=== PATIENT | male | born 1930 | race Caucasian/White ===

== ENCOUNTER 2017-02-06 16:50 | Emergency (ER) | payer OTHER ==
[~2017-02-06] VITALS: Ht 167.6 cm; Wt 99.0 kg
[~2017-02-06 16:50] MED LIST: ADULT LOW DOSE81 M1 PO; AMLODIPINE BESYL5 MG PO; ANTIVERT25 MG PO; CLOPIDOGREL75 MG PO; COUMADIN3 MG PO; COUMADIN5 MG PO; COZAAR25 MG PO; COZAAR50 MG PO; CYCLOBENZAPRINE10 MG PO; CYCLOBENZAPRINE5 MG PO; DAILY VALUE1 EACH PO; DESYREL12.5 MG PO; DOCUSATE SODIU100 MG PO; ELIQUIS5 MG PO; ENDOCET 5-3251 EACH PO; FLOMAX0.4 M1 PO; FLOMAX0.4 MG PO; KEFLEX500 MG PO; LIDOCAINE700 MG TD; LOPRESSOR25 MG PO; NITROSTAT0.4 MG SL; PLAVIX75 MG PO; SIMVASTATIN40 M1 PO; TRAMADOL HCL50 MG PO; TRAZODONE HCL50 MG PO; TYLENOL ARTHRI650 MG PO; TYLENOL EXTRA500 MG PO; WARFARIN SODIUM3 MG PO
[2017-02-06 19:01] LABS: D-DIMER ELISA 0.84 mg/L FEU (< 0.57); INTER. NORMALIZED RATIO 1.2; PROTHROMBIN TIME 12.5 (9.2-11.2)
[2017-02-06 19:02] LABS: EOSINOPHIL (%) 0.7 % (0-5); EOSINOPHIL COUNT 0.1 K/uL (0-0.3); HEMATOCRIT 52.6 % (38.0-50.0); IMMATURE GRANULOCYTE (%) 0.2 % (0.0-0.7); INSTRUMENT ABS NEUTROPHIL CT 6.5 K/uL; LYMPHOCYTE COUNT 1.1 K/uL (1.0-2.8); MCH 32.1 PG (29.0-34.0); MCHC 33.5 G/DL (30.0-36.0); MEAN PLAT.VOLUME 9.8 uM^3 (9.0-12.4); MONOCYTE (%) 7.6 % (3-12); MONOCYTE COUNT 0.6 K/uL (0-0.8); NEUTROPHIL COUNT 6.5 K/uL (1.8-6.4); PLATELET COUNT 117 K/uL (156-360); RBC DIS.WIDTH-CV 13.2 % (11.8-14.6); RBC DIS.WIDTH-SD 47.2 % (39-53); RED BLOOD COUNT 5.48 M/uL (4.00-5.50); WHITE BLOOD COUNT 8.3 K/uL (4.1-10.2)
[2017-02-06 19:09] LABS: CHLORIDE 104 mEq/L (99-109); SODIUM 140 mEq/L (136-147)
[2017-02-06 19:12] LABS: GLUCOSE 99 mg/dL (70-99)
[2017-02-06 19:13] LABS: ANION GAP 14 MEQ/L (2-14)
[2017-02-06 19:14] LABS: TOTAL BILIRUBIN 4.5 mg/dL (0.0-1.0)
[2017-02-06 19:15] LABS: ALKALINE PHOSPHATASE 97 IU/L (3-129); GFR ESTIMATE (CALCULATED) 47 mL/min/
[2017-02-06 19:16] LABS: TROP-I INTERPRETATION NEGATIVE; TROPONIN-I < 0.01 ng/mL (0.0-0.30); UREA NITROGEN (BUN) 22 mg/dL (9-23)
[2017-02-06] MEDS ORDERED: LORTAB 5-325 M1 EACH PO (22:12)
[2017-02-06] MEDS ORDERED: PROVENTIL HFA6.7 GM IH (22:12)
[2017-02-06] MEDS ORDERED: TESSALON PERLE100 MG PO (22:12)
[2017-02-06] MEDS ORDERED: CEFTIN500 MG PO (22:12)
[2017-02-06 22:54] VITALS: BP 98/67
== END 2017-02-06 23:00 | disposition home or self-care (01) ==
LOC: EME → EDBD 16:50 → EME 23:00
PROVIDERS: Emergency Medicine
DX: J40 Bronchitis, not specified as acute or chronic (principal); R09.1 Pleurisy; I10 Essential (primary) hypertension; E78.5 Hyperlipidemia, unspecified; Z79.01 Long term (current) use of anticoagulants; Z85.46 Personal history of malignant neoplasm of prostate; Z95.5 Presence of coronary angioplasty implant and graft; Z87.891 Personal history of nicotine dependence
CPT/HCPCS: 71010; 71275; 80053; 83880; 84484; 85025; 85379; 85610; 93005; 94640; 94640 76; 99281; 99285; J2270; J2405

== ENCOUNTER → 2017-06-12 | Outpatient (CLI) | payer OTHER ==
[~2017-06-12] MED LIST changes: +CEFTIN500 MG PO; +LORTAB 5-325 M1 EACH PO; +PROVENTIL HFA6.7 GM IH; +TESSALON PERLE100 MG PO
== END | disposition home or self-care (01) ==
LOC: NUC 10:50
DX: R97.20 Elevated prostate specific antigen [PSA] (principal); Z85.46 Personal history of malignant neoplasm of prostate
CPT/HCPCS: 78306; A9503

== ENCOUNTER 2017-10-17 16:52 | Inpatient (IN) | payer OTHER ==
[~2017-10-17] VITALS: Ht 170.2 cm; Wt 105.7 kg
[~2017-10-17 16:52] MED LIST changes: +COZAAR100 MG PO
[2017-10-17 17:26] LABS: HEMATOCRIT 47.9 % (38.0-50.0); MEAN PLAT.VOLUME 9.7 uM^3 (9.0-12.4); PLATELET COUNT 118 K/uL (156-360); RBC DIS.WIDTH-CV 13.4 % (11.8-14.6); RBC DIS.WIDTH-SD 47.8 % (39-53); RED BLOOD COUNT 4.94 M/uL (4.00-5.50); WHITE BLOOD COUNT 8.9 K/uL (4.1-10.2)
[2017-10-17 17:34] LABS: CHLORIDE 109 mEq/L (99-109); SODIUM 141 mEq/L (136-147)
[2017-10-17 17:36] LABS: GLUCOSE 101 mg/dL (70-99)
[2017-10-17 17:37] LABS: ANION GAP 9 MEQ/L (2-14)
[2017-10-17 17:40] LABS: GFR ESTIMATE (CALCULATED) 47 mL/min/
[2017-10-17 17:41] LABS: UREA NITROGEN (BUN) 20 mg/dL (9-23)
[2017-10-17 17:48] LABS: TROP-I INTERPRETATION NEGATIVE; TROPONIN-I < 0.01 ng/mL (0.0-0.30)
[2017-10-17] MEDS ORDERED: GABAPENTIN300 MG PO (19:12)
[2017-10-17] MEDS ORDERED: ADVAIR 250/501 DISK IH (19:12)
[2017-10-17] MEDS ORDERED: CO Q-10100 MG PO (19:12)
[2017-10-18 00:18] LABS: BASE EXCESS -7.3 mEq/L (-3 to +3); BICARBONATE 16.2 mEq/L (22-26); CARBOXY HGB 1.7 % (0-5); METHEMOGLOBIN 1.7 % (0-1.5); PCO2 28 mm Hg (35-45); PO2 90 mm Hg (80-100); SITE LR; pH 7.37 (7.35-7.45)
[2017-10-18 00:19] LABS: COMMENTS - BLOOD GASES A+C+; DEVICE NC; O2 FLOW 2 L/MIN; TOTAL RESP RATE 28 resp/min
[2017-10-18 00:30] VITALS: BP 123/78
[2017-10-18 01:38] LABS: TOTAL BILIRUBIN 2.9 mg/dL (0.0-1.0)
[2017-10-18 01:39] LABS: ALKALINE PHOSPHATASE 81 IU/L (3-129)
[2017-10-18 01:40] LABS: TROP-I INTERPRETATION NEGATIVE; TROPONIN-I 0.02 ng/mL (0.0-0.30)
[2017-10-18 01:41] LABS: DIRECT BILIRUBIN 0.7 mg/dL (0.0-0.3)
[2017-10-18 03:04] LABS: ADD MIUA? NO; BILIRUBIN NEGATIVE; BLOOD NEGATIVE; COLOR AMBER ((YELLOW)); GLUCOSE (STRIP) >=500; KETONES 5; LEUKOCYTES NEGATIVE; NITRITE NEGATIVE; PROTEIN (STRIP) 30; SPECIFIC GRAVITY 1.032 (1.000-1.030); UCUL ADDED? NO; UROBILINOGEN 0.2 MG/DL (0.2-1.0)
[2017-10-18 03:15] VITALS: BP 129/68
[2017-10-18 06:16] LABS: HEMATOCRIT 46.7 % (38.0-50.0); MCH 31.9 PG (29.0-34.0); MCHC 31.9 G/DL (30.0-36.0); MEAN PLAT.VOLUME 10.1 uM^3 (9.0-12.4); PLATELET COUNT 126 K/uL (156-360); RBC DIS.WIDTH-CV 13.8 % (11.8-14.6); RBC DIS.WIDTH-SD 50.4 % (39-53); RED BLOOD COUNT 4.67 M/uL (4.00-5.50)
[2017-10-18 06:20] LABS: TROP-I INTERPRETATION NEGATIVE; TROPONIN-I 0.02 ng/mL (0.0-0.30)
[2017-10-18 06:38] LABS: ALKALINE PHOSPHATASE 66 IU/L (3-129); ANION GAP 15 MEQ/L (2-14); CHLORIDE 107 MEQ/L (99-109); GFR ESTIMATE (CALCULATED) 51 mL/min/; POTASSIUM 4.4 MEQ/L (3.7-5.4); SAMPLE HEMOLYSIS CHECK 0; SAMPLE ICTERIC CHECK 0; SAMPLE LIPEMIA CHECK 0; SODIUM 141 MEQ/L (136-147); TOTAL BILIRUBIN 2.2 MG/DL (0.0-1.0); UREA NITROGEN (BUN) 24 mg/dL (9-23)
[2017-10-18 06:40] LABS: GLUCOSE 242 mg/dL (70-99)
[2017-10-18 08:00] VITALS: BP 139/73
[2017-10-18 09:00] VITALS: BP 139/73
[2017-10-18 10:07] LABS: Estimated Average Glucose 137 mg/dL (70-123); HEMOGLOBIN A1c (GLYCOHEMOGLOB) 6.4 % HGB (Below 5.7)
[2017-10-18 13:21] LABS: POINT-OF-CARE METER ID UU14174216
[2017-10-18 15:42] LABS: POINT-OF-CARE METER ID UU13113781
[2017-10-18 16:00] VITALS: BP 140/72
[2017-10-18 19:00] VITALS: BP 131/80
[2017-10-18 20:59] LABS: POINT-OF-CARE METER ID UU14174216
[2017-10-19] VITALS (7 sets, daily range): BP systolic 123–162; BP diastolic 84–101
[2017-10-19 04:40] LABS: HEMATOCRIT 45.4 % (38.0-50.0); MCH 32.8 PG (29.0-34.0); MCHC 33.7 G/DL (30.0-36.0); MCV 97.2 FL (86-99); MEAN PLAT.VOLUME 9.9 uM^3 (9.0-12.4); PLATELET COUNT 134 K/uL (156-360); RBC DIS.WIDTH-CV 14.3 % (11.8-14.6); RBC DIS.WIDTH-SD 51.6 % (39-53); RED BLOOD COUNT 4.67 M/uL (4.00-5.50); WHITE BLOOD COUNT 16.8 K/uL (4.1-10.2)
[2017-10-19 04:55] LABS: CHLORIDE 110 mEq/L (99-109); POTASSIUM 4.9 mEq/L (3.7-5.4); SODIUM 141 mEq/L (136-147)
[2017-10-19 04:57] LABS: GLUCOSE 194 mg/dL (70-99)
[2017-10-19 04:58] LABS: ANION GAP 10 MEQ/L (2-14)
[2017-10-19 05:01] LABS: GFR ESTIMATE (CALCULATED) 56 mL/min/ (58.99-99999)
[2017-10-19 05:02] LABS: UREA NITROGEN (BUN) 28 mg/dL (9-23)
[2017-10-19 08:34] LABS: POINT-OF-CARE METER ID UU14174216
[2017-10-19 11:43] LABS: POINT-OF-CARE METER ID UU14174216
[2017-10-19 16:17] LABS: POINT-OF-CARE METER ID UU14174216
[2017-10-19 21:00] LABS: POINT-OF-CARE METER ID UU13113781
[2017-10-20 04:18] VITALS: BP 154/95
[2017-10-20 08:31] LABS: POINT-OF-CARE METER ID UU14174216; POINT-OF-CARE USER ID NUTSLF44
[2017-10-20 08:45] VITALS: BP 153/93
[2017-10-20 09:41] LABS: HEMATOCRIT 50.3 % (38.0-50.0); MCH 31.9 PG (29.0-34.0); MCHC 32.6 G/DL (30.0-36.0); MCV 97.9 FL (86-99); PLATELET COUNT 147 K/uL (156-360); RBC DIS.WIDTH-CV 14.4 % (11.8-14.6); RBC DIS.WIDTH-SD 51.9 % (39-53); RED BLOOD COUNT 5.14 M/uL (4.00-5.50); WHITE BLOOD COUNT 14.8 K/uL (4.1-10.2)
[2017-10-20] MEDS ORDERED: AZITHROMYCIN500 M1 PO (09:48)
[2017-10-20] MEDS ORDERED: MEDROL DOSEPAK4 MG PO (09:50)
[2017-10-20] MEDS ORDERED: VENTOLIN HFA18 GM IH (09:50)
[2017-10-20 10:11] LABS: ANION GAP 12 MEQ/L (2-14); CHLORIDE 107 MEQ/L (99-109); GFR ESTIMATE (CALCULATED) 51 mL/min/ (58.99-99999); GLUCOSE 211 mg/dL (70-99); POTASSIUM 4.5 MEQ/L (3.7-5.4); SAMPLE HEMOLYSIS CHECK 0; SAMPLE ICTERIC CHECK 1; SAMPLE LIPEMIA CHECK 0; SODIUM 142 MEQ/L (136-147); UREA NITROGEN (BUN) 36 mg/dL (9-23)
[2017-10-20] MEDS ORDERED: CIPRO500 MG PO (11:45)
[2017-10-20 12:00] VITALS: BP 144/101
[2017-10-20 12:59] LABS: POINT-OF-CARE METER ID UU14314088; POINT-OF-CARE USER ID NUTSLF44
== END 2017-10-20 13:11 | disposition home or self-care (01) | DRG 190 ==
LOC: EME 16:52 → 4EAST 22:01 → EDOF 22:01 → ENRESERV 22:09 → 5SOUTH 23:55 → ENRESERV 10-18 00:02 → 4EAST 10-18 03:14
PROVIDERS: Emergency Medicine; Hospitalist; Internal Medicine; Physician Assistant
DX: J44.1 Chronic obstructive pulmonary disease with (acute) exacerbation (principal); J20.9 Acute bronchitis, unspecified; J44.0 Chronic obstructive pulmonary disease with (acute) lower respiratory infection; J96.21 Acute and chronic respiratory failure with hypoxia; Z99.81 Dependence on supplemental oxygen; E87.2 Acidosis; I71.2 Thoracic aortic aneurysm, without rupture; I71.4 Abdominal aortic aneurysm, without rupture; N30.90 Cystitis, unspecified without hematuria; N13.2 Hydronephrosis with renal and ureteral calculous obstruction; I48.2 Chronic atrial fibrillation; E87.70 Fluid overload, unspecified; I12.9 Hypertensive chronic kidney disease with stage 1 through stage 4 chronic kidney disease, or unspecified chronic kidney disease; N18.3 Chronic kidney disease, stage 3 (moderate); I25.10 Atherosclerotic heart disease of native coronary artery without angina pectoris; G47.33 Obstructive sleep apnea (adult) (pediatric); I35.0 Nonrheumatic aortic (valve) stenosis; E66.9 Obesity, unspecified; Z68.36 Body mass index [BMI] 36.0-36.9, adult; E78.00 Pure hypercholesterolemia, unspecified; I87.2 Venous insufficiency (chronic) (peripheral); E83.119 Hemochromatosis, unspecified; D75.1 Secondary polycythemia; M54.5 Low back pain; G89.29 Other chronic pain; F41.9 Anxiety disorder, unspecified; F32.9 Major depressive disorder, single episode, unspecified; Z86.711 Personal history of pulmonary embolism; Z79.01 Long term (current) use of anticoagulants; Z85.46 Personal history of malignant neoplasm of prostate; Z92.3 Personal history of irradiation; Z95.1 Presence of aortocoronary bypass graft; Z95.3 Presence of xenogenic heart valve; Z95.5 Presence of coronary angioplasty implant and graft; Z79.02 Long term (current) use of antithrombotics/antiplatelets
CPT/HCPCS: 36600; 71020; 71250; 74176; 80048; 80053; 80076; 81003; 82803; 82948; 83036; 83605; 84484; 85027; 87040; 87070; 87205; 93005; 93306; 94640; 94640 76; 94644; 94660; 94760; 94799; 99202; 99281; 99285; J1815; J2543; J2930; J3370; J7030; J7050; J7512; J7644